=== PATIENT | male | born 1990 | race Caucasian/White ===

== ENCOUNTER 2023-12-20 12:40 | Emergency (ER) | payer OTHER ==
[~2023-12-20] VITALS: Ht 175.3 cm; Wt 99.7 kg
[2023-12-20 12:58] VITALS: BP 140/81
[2023-12-20 13:00] VITALS: BP 120/80
[2023-12-20 13:15] VITALS: BP 115/75
[2023-12-20] MEDS ORDERED: METHOCARBAMOL 1,000 MG/10 ML VIAL IV ONE (13:20)
[2023-12-20] MEDS ORDERED: KETOROLAC TROMETHAMINE 30 MG/ML SDV IV ONE (13:20)
[2023-12-20 13:39] LABS: BASO% 0.2 % (0-3); EOS% 0.8 % (0-8); HEMATOCRIT 47.6 % (39.0-50.0); IMMATURE GRANULOCYTES 0.1 % (0.0-5.0); LYMPH% 22.5 % (15-41); MEAN CELL VOLUME 87.3 fL CALC (80.0-100.0); MEAN CORPUSCULAR HGB 29.4 pG CALC (26.0-32.0); MEAN CORPUSCULAR HGB CONC 33.6 g/dL CAL (32.0-36.0); NEUT# 7.08 thou/uL (1.82-7.42); NEUT% 67.4 % (42-76); RED BLOOD COUNT 5.45 mill/uL (4.70-6.10); RED CELL DISTRI WIDTH 11.6 % (11.5-15.5)
[2023-12-20 13:52] LABS: ALBUMIN 5.1 g/dL (3.2-5.0); BILIRUBIN, TOTAL 1.3 mg/dL (0.2-1.3); CREATININE 0.9 mg/dL (0.7-1.3); POTASSIUM 3.7 mmol/l (3.5-5.1); TOTAL PROTEIN 8.1 g/dL (6.3-8.2)
[2023-12-20 15:38] LABS: URINE BILIRUBIN - DIPSTICK Negative (NEGATIVE); URINE BLOOD DIPSTICK Negative (NEGATIVE); URINE CLARITY Clear; URINE GLUCOSE - DIPSTICK Negative (NEGATIVE); URINE KETONE Negative (NEGATIVE); URINE LEUK ESTERASE Negative (Negative); URINE NITRITE - DIPSTICK Negative (Negative); URINE PH 5.5 (4.5-8.0); URINE PROTEIN - DIPSTICK Trace mg/dL (NEG-TRACE); URINE SPECIFIC GRAVITY 1.025; URINE UROBILINOGEN - DIPSTICK 0.2 E.U./dL (0.2)
[2023-12-20 15:40] LABS: URINE COLOR Yellow
[2023-12-20] MEDS ORDERED: METHOCARBAMOL500 MG PO (15:51)
[2023-12-20] MEDS ORDERED: TRAMADOL HYDROC50 M1 PO (15:51)
[2023-12-20] MEDS ORDERED: NAPROXEN500 MG PO (15:51)
[2023-12-20] MEDS ORDERED: HYDROcodone 7.5 MG/Acetaminophen 325 MG/COMBO PO ONE (16:05)
[2023-12-20 16:30] VITALS: BP 115/75
== END 2023-12-20 16:37 | disposition home or self-care (01) | DRG 605 ==
LOC: ED 12:40
PROVIDERS: Nurse Practitioner
DX: S40.212A Abrasion of left shoulder, initial encounter (principal); S70.311A Abrasion, right thigh, initial encounter; S80.212A Abrasion, left knee, initial encounter; S90.512A Abrasion, left ankle, initial encounter; S50.311A Abrasion of right elbow, initial encounter; V20.49XA Other motorcycle driver injured in collision with pedestrian or animal in traffic accident, initial encounter